=== PATIENT | male | born 1955 | race African-American/Black ===

== ENCOUNTER 2023-01-25 06:30 | Emergency (ER) | payer MEDICAID, OTHER ==
[~2023-01-25] VITALS: Ht 182.9 cm; Wt 93.1 kg
[2023-01-25] MEDS ORDERED: DEXAMETHASONE 10 MG/ML VIAL IV ONE (07:30)
[2023-01-25] MEDS ORDERED: ONDANSETRON HCL 4MG/2ML INJ IV ONE (07:30)
[2023-01-25 07:52] LABS: BASOPHILS % 0.7 % (0.0-2.0); EOSINOPHILS % 2.8 % (0.0-5.0); HEMATOCRIT. 38.8 % (42.0-52.0); HEMOGLOBIN. 12.6 g/dL (14.0-18.0); LYMPHOCYTES % 25.6 % (20.0-50.0); MEAN CORPUSCULAR HEMOGLOBIN 24.2 pg (28.0-32.0); MEAN CORPUSCULAR VOLUME 74.4 fL (80.0-94.0); MEAN PLATELET VOLUME 8.2 fl (7.4-10.4); MONOCYTES % 8.2 % (2.0-8.0); NEUTROPHILS % 62.7 % (40.0-76.0); PLATELET 194 x1000/uL (130-400); RED BLOOD CELL COUNT 5.21 mill/uL (4.7-6.1); RED CELL DISTRIBUTION WIDTH 15.5 % (11.6-14.6)
[2023-01-25 08:01] LABS: CHLORIDE 109 mEq/L (98-107)
[2023-01-25 08:22] LABS: MONOTEST NEGATIVE (NEGATIVE)
[2023-01-25 10:00] VITALS: BP 139/89
[2023-01-25] MEDS ORDERED: IOHEXOL-300 50 ML BOTTLE IV ONE (13:03)
[2023-01-25] MEDS ORDERED: IOHEXOL-300 100 ML BOTTLE ONE (13:05)
== END 2023-01-25 10:38 | disposition home or self-care (01) ==
LOC: ER 06:30
DX: K12.2 Cellulitis and abscess of mouth (principal)
CPT/HCPCS: 36415; 70491; 80053; 85025; 86308; 87070; 87430; 96374; 96375; 99285; J1100; J2405; Q9967